=== PATIENT | female | born 1940 | race Caucasian/White ===

== ENCOUNTER 2017-08-12 12:01 | Emergency (ER) | payer OTHER ==
[~2017-08-12] VITALS: Ht 157.5 cm; Wt 74.8 kg
[2017-08-12] MEDS ORDERED: ULTRAM 50MG TAB50 MG PO (15:20)
[2017-08-12 16:04] VITALS: BP 122/76
== END 2017-08-12 16:06 | disposition home or self-care (01) ==
LOC: ER 12:01
DX: S92.302A Fracture of unspecified metatarsal bone(s), left foot, initial encounter for closed fracture (principal); S42.201A Unspecified fracture of upper end of right humerus, initial encounter for closed fracture; S01.112A Laceration without foreign body of left eyelid and periocular area, initial encounter; S80.812A Abrasion, left lower leg, initial encounter; M25.532 Pain in left wrist; I10 Essential (primary) hypertension; I25.2 Old myocardial infarction; M19.90 Unspecified osteoarthritis, unspecified site; W18.39XA Other fall on same level, initial encounter; Y93.89 Activity, other specified; Y92.89 Other specified places as the place of occurrence of the external cause; Y99.8 Other external cause status